=== PATIENT | female | born 1945 | race Caucasian/White ===

== ENCOUNTER 2016-03-28 16:24 | Emergency (ER) | payer OTHER ==
[~2016-03-28] VITALS: Ht 162.6 cm; Wt 65.8 kg
[2016-03-28 17:54] LABS: BASOPHILS # (AUTO) 0.1 /CMM (0.0-0.2); BASOPHILS % (AUTO) 1.4 % (0.0-2.0); DIFF TOTAL % 100 %; HEMATOCRIT 47 % (33-45); LYMPHOCYTES # (AUTO) 1.4 /CMM (0.8-4.8); LYMPHOCYTES % (AUTO) 36.4 % (20.0-44.0); MEAN CORPUSCULAR HEMOGLOBIN 31 PG (26.0-33.0); MEAN CORPUSCULAR HGB CONC 34 g/dl (31.0-36.0); MEAN CORPUSCULAR VOLUME 91 fL (82-100); MONOCYTES # (AUTO) 0.2 /CMM (0.1-1.30); MONOCYTES % (AUTO) 5.6 % (2.0-12.0); NEUTROPHILS # (AUTO) 2.1 /CMM (1.8-8.9); NEUTROPHILS % (AUTO) 55.6 % (43.0-81.0); PLATELET COUNT (AUTO) 217 /CMM (150-450); RED BLOOD CELL COUNT(AUTO) 5.22 MIL/uL (4.0-5.2); WHITE BLOOD COUNT (AUTO) 3.8 K/uL (4.3-11.0)
[2016-03-28] MEDS ORDERED: IV SET PRIMARY 1 EA INFUS.SET MC ONE (17:56)
[2016-03-28] MEDS ORDERED: IV NS 0.9% 500 ML IV ONE (17:56)
[2016-03-28 17:59] LABS: ANION GAP 19 (5-14); CARBON DIOXIDE 26 mmol/L (21-32); CHLORIDE 106 mmol/L (98-107); CREATININE 0.6 mg/dL (0.6-1.3); GFR 99 mL/min (>60); GLUCOSE 94 mg/dL (74-106); SODIUM SERUM 147 mmol/L (136-145); UREA NITROGEN, BLOOD 7 mg/dL (7-18)
[2016-03-28] MEDS ORDERED: IV NS 0.9% 500 ML BAG IV ONE (18:00)
[2016-03-28 18:07] LABS: ALANINE AMINOTRANSFERASE 38 U/L (12-78); ALBUMIN 4.3 g/dL (3.4-5.0); ASPARTATE AMINOTRANSFERASE 33 U/L (15-37); BILIRUBIN,DIRECT 0.1 mg/dL (0.0-0.2); BILIRUBIN,TOTAL 0.3 mg/dL (0.2-1.0); INDIRECT BILIRUBIN 0.2 mg/dL (0.0-1.1); TOTAL PROTEIN, SERUM 7.9 g/dL (6.4-8.2); TROPONIN I < 0.017 ng/mL (0.00-0.056)
[2016-03-28 18:11] LABS: CALCIUM, SERUM 8.5 mg/dL (8.5-10.1)
[2016-03-28 18:13] LABS: SALICYLATE 0.8 mg/dL (2.8-20.0)
[2016-03-28 18:14] LABS: ACETAMINOPHEN 0 ug/ml (10-30)
[2016-03-28 18:42] LABS: KETONES,URINE NEGATIVE (NEGATIVE); LEUKOCYTE ESTERASE ,URINE NEGATIVE (NEGATIVE)
[2016-03-28 19:01] LABS: CANNABINOID, URINE NEGATIVE (NEGATIVE); PHENCYCLIDINE SCREEN,URINE NEGATIVE (NEGATIVE)
[2016-03-28 19:13] LABS: ADD UA MICROSCOPIC YES
[2016-03-28 19:16] LABS: ADD URINE CULTURE NO
[2016-03-28 19:17] LABS: HYALINE CASTS, URINE Few /LPF (None Seen)
[2016-03-28] MEDS ORDERED: IOHEXOL-350 100 ML VIAL IV ONE (20:45)
[2016-03-28] MEDS ORDERED: CT SWABBABLE VALVE TRANS SET 1 EA INFUS.SET MC ONE (20:46)
[2016-03-28] MEDS ORDERED: IV NS 0.9% 250 ML IV ONE (20:46)
[2016-03-28] MEDS ORDERED: THIAMINE HCL 100 MG TABLET PO ONE (22:00)
[2016-03-28] MEDS ORDERED: LORAZEPAM 0.5 MG TABLET PO ONE (22:00)
[2016-03-28] MEDS ORDERED: LORAZEPAM 1 MG TABLET ONE (22:01)
[2016-03-28] MEDS ORDERED: THIAMINE HCL 100 MG TABLET ONE (22:01)
[2016-03-28] MEDS ORDERED: HEPARIN INFUSION/D5W 500 ML IV PRN (22:30)
[2016-03-28 22:51] LABS: INR 0.99 (0.87-1.13); PROTHROMBIN TIME 10.7 SECS (9.5-12.7)
[2016-03-28] MEDS ORDERED: IV SET PRIMARY PUMP SET 1 EA INFUS.SET MC ONE (23:03)
[2016-03-28] MEDS ORDERED: HEPARIN INFUSION/D5W 500 ML IV ONE (23:03)
[2016-03-28] MEDS ORDERED: HEPARIN SODIUM, PORCINE 5000 UNITS/1 ML VIAL ONE (23:04)
[2016-03-28] MEDS ORDERED: HEPARIN SODIUM, PORCINE 5000 UNITS/1 ML VIAL IV ONE (23:30)
[2016-03-28 23:47] VITALS: BP 144/82
== END 2016-03-29 00:26 ==
LOC: ER 16:25
DX: F10.129 Alcohol abuse with intoxication, unspecified (principal); R40.4 Transient alteration of awareness; I26.99 Other pulmonary embolism without acute cor pulmonale; C50.919 Malignant neoplasm of unspecified site of unspecified female breast; J45.909 Unspecified asthma, uncomplicated; R79.1 Abnormal coagulation profile
CPT/HCPCS: 36415; 70450; 71010; 71275; 74160; 80048; 80076; 80305; 81001; 83690; 84484; 85025; 85730; 93005; 96365; 96375; 99285; A4606; G0480; G0481; G0482; J1644 ×2; J7040; J7050; Q9967; 81000-TC; G6038-TC; G6039-TC; G6040-TC; Z7610

== ENCOUNTER 2016-03-31 18:32 | Emergency (ER) | payer OTHER ==
[~2016-03-31] VITALS: Ht 157.5 cm; Wt 67.6 kg
[2016-03-31] MEDS ORDERED: IV NS 0.9% 1,000 ML BAG IV ONE (19:00)
[2016-03-31 20:52] LABS: BASOPHILS % (AUTO) 0.9 % (0.0-2.0); DIFF TOTAL % 100 %; EOSINOPHILS # (AUTO) 0.1 /CMM (0.0-0.7); EOSINOPHILS % (AUTO) 2.6 % (0.0-6.0); HEMATOCRIT 44 % (33-45); HEMOGLOBIN 14.5 g/dL (11.5-14.8); LYMPHOCYTES # (AUTO) 1.5 /CMM (0.8-4.8); LYMPHOCYTES % (AUTO) 29.6 % (20.0-44.0); MEAN CORPUSCULAR HEMOGLOBIN 30 PG (26.0-33.0); MEAN CORPUSCULAR HGB CONC 33 g/dl (31.0-36.0); MEAN CORPUSCULAR VOLUME 91 fL (82-100); MONOCYTES # (AUTO) 0.4 /CMM (0.1-1.30); MONOCYTES % (AUTO) 8.6 % (2.0-12.0); NEUTROPHILS # (AUTO) 2.9 /CMM (1.8-8.9); NEUTROPHILS % (AUTO) 58.3 % (43.0-81.0); PLATELET COUNT (AUTO) 182 /CMM (150-450); RED BLOOD CELL COUNT(AUTO) 4.84 MIL/uL (4.0-5.2); WHITE BLOOD COUNT (AUTO) 4.9 K/uL (4.3-11.0)
[2016-03-31 21:08] LABS: CALCIUM, SERUM 8.7 mg/dL (8.5-10.1); CREATININE 0.7 mg/dL (0.6-1.3)
[2016-03-31 21:14] LABS: ALBUMIN 3.9 g/dL (3.4-5.0); TOTAL PROTEIN, SERUM 7.4 g/dL (6.4-8.2)
[2016-03-31 21:25] LABS: SALICYLATE 0.9 mg/dL (2.8-20.0)
[2016-03-31] MEDS ORDERED: OLANZAPINE 10 MG VIAL IM ONE ×2 (21:30→22:01)
[2016-03-31 21:34] LABS: BILIRUBIN,TOTAL 0.1 mg/dL (0.2-1.0)
[2016-03-31 21:38] LABS: INDIRECT BILIRUBIN 0.1 mg/dL (0.0-1.1)
[2016-03-31 21:42] LABS: INR 1.27 (0.87-1.13); PROTHROMBIN TIME 13.7 SECS (9.5-12.7)
[2016-03-31] MEDS ORDERED: WARFARIN SODIUM 1 MG TABLET PO ONE (22:00)
[2016-03-31] MEDS ORDERED: IV NS 0.9% 1,000 ML ONE (22:01)
[2016-03-31] MEDS ORDERED: IV SET PRIMARY 1 EA INFUS.SET MC ONE (22:01)
[2016-03-31 22:10] LABS: CANNABINOID, URINE NEGATIVE (NEGATIVE); PHENCYCLIDINE SCREEN,URINE NEGATIVE (NEGATIVE)
[2016-03-31] MEDS ORDERED: WARFARIN SODIUM 1 MG TABLET ONE (22:36)
[2016-03-31] MEDS ORDERED: ENOXAPARIN SODIUM 80 MG/0.8 ML DISP.SYRIN SQ ONE ×2 (22:36→22:54)
[2016-03-31] MEDS ORDERED: ENOXAPARIN SODIUM 60 MG/0.6 ML DISP.SYRIN SQ ONE (23:00)
[2016-04-01 03:23] VITALS: BP 140/72
== END 2016-04-01 03:27 | disposition home or self-care (01) ==
LOC: ER 18:33
DX: I26.99 Other pulmonary embolism without acute cor pulmonale (principal); F10.129 Alcohol abuse with intoxication, unspecified; J45.909 Unspecified asthma, uncomplicated; R79.1 Abnormal coagulation profile; Z85.3 Personal history of malignant neoplasm of breast
CPT/HCPCS: 36415; 80048; 80076; 80305; 85025; 85730; 96360; 96372 ×2; 99284; A4606; G0480; G0481; G0482; J1650; J3490; J7030; G6038-TC; G6039-TC; G6040-TC

== ENCOUNTER 2016-09-02 22:13 | Emergency (ER) | payer OTHER ==
[~2016-09-02] VITALS: Ht 165.1 cm; Wt 74.8 kg
--- NOTE | 2016-09-02 22:15 | NUR ---
TO BED 10 A 70 YO FEMALE BB FOR ETOH. PT STATES "I DRANK TOO MUCH." PATIENT IS ALERT AND RESPONSIVE, WALKING WITH STEADY GAIT. VSS. NONDIAPHORETIC. INITIATED SAFETY AND COMFORT MEASURES. AWAITING FOR ER MD CAGE.
[2016-09-02] MEDS ORDERED: ONDANSETRON 4 MG TAB.RAPDIS ONE (22:48)
[2016-09-02] MEDS ORDERED: ONDANSETRON 4 MG TAB.RAPDIS SL ONE (23:00)
--- NOTE | 2016-09-02 23:56 | NUR ---
Patient discharged to home in stable condition. Written and verbal after care instructions given. Patient verbalizes understanding of instruction. Patient is ambulatory with a steady gait, accompanied by home. Instructed not to drive. No further complaints.
[2016-09-02 23:57] VITALS: BP 127/83
== END 2016-09-02 23:58 | disposition home or self-care (01) ==
LOC: ER 22:17
DX: F10.129 Alcohol abuse with intoxication, unspecified (principal); J45.909 Unspecified asthma, uncomplicated; C50.919 Malignant neoplasm of unspecified site of unspecified female breast
CPT/HCPCS: 82962; 99283; A4606; Q0162; Z7610

== ENCOUNTER → 2016-09-24 | Emergency (ER) | payer OTHER ==
[~2016-09-24] VITALS: Ht 167.6 cm; Wt 87.1 kg
[~2016-09-24] MED LIST: IV NS 0.9% 1,000 ML BAG IV ONE; IV NS 0.9% 1,000 ML ONE; IV SET PRIMARY 1 EA INFUS.SET MC ONE; LORAZEPAM INJ 2 MG/ML VIAL IV ONE; LORAZEPAM INJ 2 MG/ML VIAL ONE
--- NOTE | 2016-09-24 17:12 | NUR ---
PT MAL HOME TO ER BED 11. CALLED 911 STATING HE CAN NO LONGER TAKE CARE OF PT FOR HEAVY ALCOHOL DRINKING. PT SEEN IN ER MULTIPLE TIMES FOR SAME REASON. PLACED ON MONITOR. STABLE VITALS. AWAITING MD CAGE.
--- NOTE | 2016-09-24 17:31 | NUR ---
DR GREY AT BEDSIDE FOR EVAL.
--- NOTE | 2016-09-24 17:45 | NUR ---
IV LINE STARTED BLOOD DRAWN AND SENT TO LAB.
[2016-09-24 17:56] LABS: BASOPHILS # (AUTO) 0.1 /CMM (0.0-0.2); BASOPHILS % (AUTO) 1.9 % (0.0-2.0); EOSINOPHILS # (AUTO) 0.1 /CMM (0.0-0.7); EOSINOPHILS % (AUTO) 2.5 % (0.0-6.0); HEMATOCRIT 38 % (33-45); LYMPHOCYTES # (AUTO) 1.1 /CMM (0.8-4.8); LYMPHOCYTES % (AUTO) 31.7 % (20.0-44.0); MEAN CORPUSCULAR HEMOGLOBIN 33 PG (26.0-33.0); MEAN CORPUSCULAR HGB CONC 34 g/dl (31.0-36.0); MEAN CORPUSCULAR VOLUME 96 fL (82-100); MONOCYTES # (AUTO) 0.4 /CMM (0.1-1.30); MONOCYTES % (AUTO) 11.9 % (2.0-12.0); NEUTROPHILS # (AUTO) 1.9 /CMM (1.8-8.9); PLATELET COUNT (AUTO) 241 /CMM (150-450); RDW COEFFICIENT OF VARIATION 16.6 (11.5-15.0); RED BLOOD CELL COUNT(AUTO) 3.97 MIL/uL (4.0-5.2); WHITE BLOOD COUNT (AUTO) 3.6 K/uL (4.3-11.0)
[2016-09-24 18:10] VITALS: BP 113/81
[2016-09-24 18:32] LABS: CALCIUM, SERUM 8.1 mg/dL (8.5-10.1); CREATININE 0.7 mg/dL (0.6-1.3); POTASSIUM 3.8 mmol/L (3.5-5.1)
[2016-09-24 18:38] LABS: ALBUMIN 3.4 g/dL (3.4-5.0); BILIRUBIN,DIRECT 0.1 mg/dL (0.0-0.2); BILIRUBIN,TOTAL 0.2 mg/dL (0.2-1.0); TOTAL PROTEIN, SERUM 6.7 g/dL (6.4-8.2)
--- NOTE | 2016-09-24 18:44 | NUR ---
Note teddy in EDM - 09/24/16 at 1852 by LISA PT IS AGITATED. YELLING, DEMANDING BE CALLED. DR QUE WHELAN. ATIVAN 1MG. ORDER CARRIED OUT. GIVEN IVP.
--- NOTE | 2016-09-24 19:02 | NUR ---
PT STILL AGITATED. DR GREY MADE AWARE. MEDECATED ORDERED.
--- NOTE | 2016-09-24 21:00 | NUR ---
FRIEND AT BEDSIDE TO TAKE PT HOME. D/C TO HOME IN STABLE CONDITION. IVHL DISCONTINUED.
== END | disposition home or self-care (01) ==
LOC: ER 17:11
DX: F10.129 Alcohol abuse with intoxication, unspecified (principal); E86.0 Dehydration; J45.909 Unspecified asthma, uncomplicated; Z85.3 Personal history of malignant neoplasm of breast
CPT/HCPCS: 36415; 80048-TC; 80076-TC; 83735-TC; 85025-TC; A4606; A6402; A6403; J2060; J7030; Z7610

== ENCOUNTER 2018-08-27 16:57 | Emergency (ER) | payer OTHER ==
[~2018-08-27] VITALS: Ht 165.1 cm; Wt 83.9 kg
[2018-08-27] MEDS ORDERED: FAMOTIDINE/PF INJ 20 MG/2 ML VIAL IV ONE ×2 (17:30→18:07)
[2018-08-27] MEDS ORDERED: ONDANSETRON HCL/PF 4 MG/2 ML VIAL IVP ONE (17:30)
[2018-08-27] MEDS ORDERED: IV NS 0.9% 1,000 ML BAG IV ONE (17:30)
--- NOTE | 2018-08-27 17:30 | NUR ---
PATIENT BIB FAMILY C/O ALCOHOL INTOXICATION +VOMITING. PATIENT A&O X 3, NO ACUTE DISTRESS. AWAITING MD
[2018-08-27 18:05] LABS: BASOPHILS # (AUTO) 0.1 /CMM (0.0-0.2); BASOPHILS % (AUTO) 1.3 % (0.0-2.0); EOSINOPHILS % (AUTO) 0.3 % (0.0-6.0); HEMATOCRIT 42 % (33-45); HEMOGLOBIN 14.1 g/dL (11.5-14.8); LYMPHOCYTES # (AUTO) 2.4 /CMM (0.8-4.8); LYMPHOCYTES % (AUTO) 24.4 % (20.0-44.0); MEAN CORPUSCULAR HGB CONC 34 g/dl (31.0-36.0); MEAN CORPUSCULAR VOLUME 94 fL (82-100); MONOCYTES # (AUTO) 0.7 /CMM (0.1-1.30); MONOCYTES % (AUTO) 7.4 % (2.0-12.0); NEUTROPHILS # (AUTO) 6.5 /CMM (1.8-8.9); NEUTROPHILS % (AUTO) 66.6 % (43.0-81.0); PLATELET COUNT (AUTO) 234 /CMM (150-450); RED BLOOD CELL COUNT(AUTO) 4.43 MIL/uL (4.0-5.2); WHITE BLOOD COUNT (AUTO) 9.7 K/uL (4.3-11.0)
[2018-08-27] MEDS ORDERED: ONDANSETRON HCL/PF 4 MG/2 ML VIAL ONE (18:07)
[2018-08-27 18:15] LABS: CALCIUM, SERUM 8.4 mg/dL (8.5-10.1); CARBON DIOXIDE 23 mmol/L (21-32); CHLORIDE 101 mmol/L (98-107); CREATININE 0.6 mg/dL (0.6-1.3); GLUCOSE 122 mg/dL (74-106); POTASSIUM 3.9 mmol/L (3.5-5.1); SODIUM SERUM 139 mmol/L (136-145); UREA NITROGEN, BLOOD 10 mg/dL (7-18)
[2018-08-27 18:21] LABS: ALANINE AMINOTRANSFERASE 29 U/L (12-78); ALBUMIN 3.1 g/dL (3.4-5.0); ALKALINE PHOSPHATASE 129 U/L (46-116); ASPARTATE AMINOTRANSFERASE 25 U/L (15-37); BILIRUBIN,DIRECT 0.1 mg/dL (0.0-0.2); BILIRUBIN,TOTAL 0.3 mg/dL (0.2-1.0); TOTAL PROTEIN, SERUM 6.8 g/dL (6.4-8.2)
[2018-08-27 18:40] LABS: ALCOHOL, BLOOD 309 mg/dL (0-0); LIPASE 148 U/L (73-393)
--- NOTE | 2018-08-27 18:58 | NUR ---
PATIENT RESTING ON BED. NO ACUTE DISTRESS. DENIES ANY PAIN OR DISCOMFORT. WILL CONTINUE TO MONITOR
--- NOTE | 2018-08-27 19:14 | NUR ---
IV removed. Catheter intact and site benign. Pressure and 4x4 applied to site. No bleeding noted.Patient discharged to home in stable condition. Written and verbal after care instructions given. Patient verbalizes understanding of instruction.
[2018-08-27 19:15] VITALS: BP 126/77
== END 2018-08-27 19:15 | disposition home or self-care (01) ==
LOC: ER 16:58
DX: K29.20 Alcoholic gastritis without bleeding (principal); F10.129 Alcohol abuse with intoxication, unspecified; F32.9 Major depressive disorder, single episode, unspecified; J45.909 Unspecified asthma, uncomplicated; Z85.3 Personal history of malignant neoplasm of breast; Y90.8 Blood alcohol level of 240 mg/100 ml or more
CPT/HCPCS: 36415; 71045; 80048; 80076; 80307; 83690; 84484; 85025; 93005; 96361; 96374; 96375; 99284; J2405; J3490; J7030; G0480

== ENCOUNTER 2018-08-29 01:57 | Emergency (ER) | payer OTHER ==
[~2018-08-29] VITALS: Ht 172.7 cm; Wt 84.8 kg
[2018-08-29] MEDS ORDERED: MAG HYDROX/AL HYDROX/SIMETH 30 ML UDC ONE ×2 (02:20→03:27)
[2018-08-29] MEDS ORDERED: ONDANSETRON HCL/PF 4 MG/2 ML VIAL ONE (02:20)
[2018-08-29] MEDS ORDERED: ONDANSETRON HCL/PF 4 MG/2 ML VIAL IM ONE (02:30)
[2018-08-29] MEDS ORDERED: MAG HYDROX/AL HYDROX/SIMETH 30 ML UDC PO ONE ×2 (02:30→03:30)
[2018-08-29 03:37] VITALS: BP 122/71
== END 2018-08-29 03:38 | disposition home or self-care (01) ==
LOC: ER 02:00
DX: F10.229 Alcohol dependence with intoxication, unspecified (principal); F32.9 Major depressive disorder, single episode, unspecified; J45.909 Unspecified asthma, uncomplicated; Y90.9 Presence of alcohol in blood, level not specified; Z85.3 Personal history of malignant neoplasm of breast
CPT/HCPCS: 82962; 96372; 99283; J2405

== ENCOUNTER 2018-09-26 13:21 | Emergency (ER) | payer OTHER ==
[~2018-09-26] VITALS: Ht 165.1 cm; Wt 83.5 kg
--- NOTE | 2018-09-26 13:40 | NUR ---
[id number] FRM HOME C/O NAUSEA AND VOMITING, TOOK AMBIEN 10MG, 3 PILL +ETOH SMELL. PT AAOX3, VSS. DENIES CP, SOB, DIZZINESS AT THIS TIME. PT SEEN & EVAL'D BY DR. WALKER & WILL CONT TO MONITOR.
[2018-09-26 13:54] LABS: BASOPHILS # (AUTO) 0.1 /CMM (0.0-0.2); BASOPHILS % (AUTO) 1.4 % (0.0-2.0); EOSINOPHILS % (AUTO) 3.2 % (0.0-6.0); HEMATOCRIT 40 % (33-45); HEMOGLOBIN 13.3 g/dL (11.5-14.8); LYMPHOCYTES # (AUTO) 0.7 /CMM (0.8-4.8); LYMPHOCYTES % (AUTO) 17.4 % (20.0-44.0); MEAN CORPUSCULAR HGB CONC 33 g/dl (31.0-36.0); MEAN CORPUSCULAR VOLUME 100 fL (82-100); MONOCYTES # (AUTO) 0.3 /CMM (0.1-1.30); MONOCYTES % (AUTO) 8.2 % (2.0-12.0); NEUTROPHILS % (AUTO) 69.8 % (43.0-81.0); PLATELET COUNT (AUTO) 147 /CMM (150-450); RED BLOOD CELL COUNT(AUTO) 3.99 MIL/uL (4.0-5.2); WHITE BLOOD COUNT (AUTO) 4.2 K/uL (4.3-11.0)
[2018-09-26] MEDS ORDERED: ONDANSETRON HCL/PF 4 MG/2 ML VIAL ONE (13:55)
[2018-09-26] MEDS ORDERED: ONDANSETRON HCL/PF 4 MG/2 ML VIAL IVP ONE (14:00)
[2018-09-26 14:01] LABS: CALCIUM, SERUM 8.3 mg/dL (8.5-10.1); CARBON DIOXIDE 27 mmol/L (21-32); CHLORIDE 102 mmol/L (98-107); CREATININE 0.7 mg/dL (0.6-1.3); GLUCOSE 102 mg/dL (74-106); POTASSIUM 3.6 mmol/L (3.5-5.1); SODIUM SERUM 140 mmol/L (136-145); UREA NITROGEN, BLOOD 2 mg/dL (7-18)
[2018-09-26 14:06] LABS: ALANINE AMINOTRANSFERASE 47 U/L (12-78); ALBUMIN 3.2 g/dL (3.4-5.0); ALCOHOL, BLOOD 56 mg/dL (0-0); ALKALINE PHOSPHATASE 141 U/L (46-116); ASPARTATE AMINOTRANSFERASE 48 U/L (15-37); BILIRUBIN,DIRECT 0.1 mg/dL (0.0-0.2); BILIRUBIN,TOTAL 0.5 mg/dL (0.2-1.0); TOTAL PROTEIN, SERUM 6.8 g/dL (6.4-8.2)
[2018-09-26 14:08] LABS: ACETAMINOPHEN 0 ug/ml (10-30); SALICYLATE 0.6 mg/dL (2.8-20.0)
--- NOTE | 2018-09-26 14:15 | NUR ---
MEDICATED PER ERMD ORDER, PT AQUILINO WELL.
[2018-09-26] MEDS ORDERED: CHLORDIAZEPOXIDE HCL 25 MG CAPSULE PO ONE (14:30)
[2018-09-26] MEDS ORDERED: IV NS 0.9% 1,000 ML BAG IV ONE (14:30)
[2018-09-26] MEDS ORDERED: CHLORDIAZEPOXIDE HCL 25 MG CAPSULE ONE (15:02)
--- NOTE | 2018-09-26 15:45 | NUR ---
Patient discharged to home in stable condition. Written and verbal after care instructions given TO . verbalizes understanding of instruction. IV removed. Catheter intact and site benign. Pressure and 4x4 applied to site. No bleeding noted.
[2018-09-26 16:16] VITALS: BP 132/78
== END 2018-09-26 16:17 | disposition home or self-care (01) ==
LOC: ER 13:23
DX: F10.20 Alcohol dependence, uncomplicated (principal); T42.6X1A Poisoning by other antiepileptic and sedative-hypnotic drugs, accidental (unintentional), initial encounter; R11.10 Vomiting, unspecified; F32.9 Major depressive disorder, single episode, unspecified; R94.31 Abnormal electrocardiogram [ECG] [EKG]; J45.909 Unspecified asthma, uncomplicated; Z85.3 Personal history of malignant neoplasm of breast; Y90.3 Blood alcohol level of 60-79 mg/100 ml; Y92.89 Other specified places as the place of occurrence of the external cause
CPT/HCPCS: 36415; 80048; 80076; 80307 ×2; 80329; 85025; 93005; 96361; 96374; 99284; G0480; J2405; J7030

== ENCOUNTER 2020-12-20 19:14 | Emergency (ER) | payer OTHER ==
[~2020-12-20] VITALS: Ht 167.6 cm; Wt 68.0 kg
--- NOTE | 2020-12-20 19:30 | NUR ---
pt bibra c/o alcohol intoxication. Per ems, pt's called because he "cant handle pt when pt is drunk". Pt keeps screaming "i want to go home" and refuses to answer questions. pt placed on 2L O2 saturating 96%. MD at bedside for eval. Pt attached to monitor and pox. Pt given blanket and call light within reach
[2020-12-20 19:48] LABS: BASOPHILS # (AUTO) 0.1 K/uL (0.0-0.2); BASOPHILS % (AUTO) 1.1 % (0.0-2.0); HEMATOCRIT 45 % (33-45); HEMOGLOBIN 14.9 g/dL (11.5-14.8); LYMPHOCYTES # (AUTO) 2.5 K/uL (0.8-4.8); LYMPHOCYTES % (AUTO) 20.1 % (20.0-44.0); MEAN CORPUSCULAR HGB CONC 33 g/dl (31.0-36.0); MEAN CORPUSCULAR VOLUME 96 fL (82-100); MONOCYTES # (AUTO) 0.8 K/uL (0.1-1.30); MONOCYTES % (AUTO) 6.7 % (2.0-12.0); NEUTROPHILS # (AUTO) 8.7 K/uL (1.8-8.9); NEUTROPHILS % (AUTO) 71.1 % (43.0-81.0); PLATELET COUNT (AUTO) 249 K/uL (150-450); RED BLOOD CELL COUNT(AUTO) 4.71 MIL/uL (4.0-5.2); WHITE BLOOD COUNT (AUTO) 12.2 K/uL (4.3-11.0)
--- NOTE | 2020-12-20 19:51 | NUR ---
blood sent to lab
[2020-12-20 19:55] LABS: CALCIUM, SERUM 8.2 mg/dL (8.5-10.1); CARBON DIOXIDE 25 mmol/L (21-32); CHLORIDE 104 mmol/L (98-107); CREATININE 0.7 mg/dL (0.6-1.3); GLUCOSE 107 mg/dL (74-106); POTASSIUM 3.5 mmol/L (3.5-5.1); SODIUM SERUM 144 mmol/L (136-145); UREA NITROGEN, BLOOD 9 mg/dL (7-18)
[2020-12-20 20:06] LABS: ALANINE AMINOTRANSFERASE 38 U/L (12-78); ALBUMIN 3.6 g/dL (3.4-5.0); ALCOHOL, BLOOD 348 mg/dL (0-0); ALKALINE PHOSPHATASE 134 U/L (46-116); ASPARTATE AMINOTRANSFERASE 35 U/L (15-37); BILIRUBIN,DIRECT 0.1 mg/dL (0.0-0.2); BILIRUBIN,TOTAL 0.2 mg/dL (0.2-1.0); TOTAL PROTEIN, SERUM 7.3 g/dL (6.4-8.2)
--- NOTE | 2020-12-20 20:06 | NUR ---
KULDEEP RIDDLE: [phone]
[2020-12-20 20:10] LABS: ACETAMINOPHEN < 0 ug/ml (10-30)
--- NOTE | 2020-12-20 20:10 | NUR ---
CALLED [facility] [phone]
--- NOTE | 2020-12-20 20:12 | NUR ---
ANTONINA GREER MD, ON THE PHONE W/ DR ZAYAS
--- NOTE | 2020-12-20 20:15 | NUR ---
Priya espinal in [facility] - 12/20/20 at 2124 by GERARDO gave report to ems
--- NOTE | 2020-12-20 20:18 | NUR ---
urine and covid swab sent to lab
[2020-12-20 20:26] LABS: BILIRUBIN,URINE Negative (NEGATIVE); COLOR,URINE LIGHT YELLOW (YELLOW); LEUKOCYTE ESTERASE ,URINE Moderate (NEGATIVE); NITRITE, URINE Negative (NEGATIVE); PH,URINE 5.5 (5.0-8.0); PROTEIN,URINE Trace mg/dl (NEGATIVE); UGLUCOSE Negative (NEGATIVE); UROBILINOGEN,URINE 0.2 EU/dL (0.2)
[2020-12-20] MEDS ORDERED: IV NS 0.9% 1,000 ML BAG IV ONE (20:30)
--- NOTE | 2020-12-20 20:35 | NUR ---
SULTANA MORROW AT [facility] PT GOT ACCEPTED AT [facility], GOING TO [facility] # FOR REPORT: [phone] Addendum: 12/20/20 at 2035 by MICHAEL ROBSON AMOR
[2020-12-20 20:39] LABS: BACTERIA,URINE Many /HPF (None Seen); FINE GRANULAR CASTS,URINE Few /LPF (None Seen); SQUAMOUS EPITHELIAL CELL,UR Few /HPF (None Seen)
--- NOTE | 2020-12-20 21:13 | NUR ---
gave report to micky Dang for yari
--- NOTE | 2020-12-20 21:15 | NUR ---
gave report to ems
--- NOTE | 2020-12-20 21:36 | NUR ---
pt refused transport to [facility]. pt's will come to pick her up
--- NOTE | 2020-12-20 21:44 | NUR ---
PLACED MULTIPLE PHONE CALLS TO KULDEEP THE , W/ NO ANSWER
--- NOTE | 2020-12-20 22:05 | NUR ---
Patient does not wish to proceed with medical care recommended by Dr. Downing. Patient given information related to possible complications, up to and including , which could occur as a result of leaving the hospital at this time. Patient verbalizes understanding of risks involved due to leaving against medical advice. Patient, has signed AMA form.
[2020-12-20 22:09] VITALS: BP 140/85
== END 2020-12-20 22:05 | disposition left against medical advice (07) ==
LOC: ER 19:27
DX: F10.229 Alcohol dependence with intoxication, unspecified (principal); Y90.8 Blood alcohol level of 240 mg/100 ml or more; R62.7 Adult failure to thrive; Z20.822 Contact with and (suspected) exposure to COVID-19; Z68.24 Body mass index [BMI] 24.0-24.9, adult; Z53.29 Procedure and treatment not carried out because of patient's decision for other reasons; Z85.3 Personal history of malignant neoplasm of breast; J45.909 Unspecified asthma, uncomplicated
CPT/HCPCS: 36415; 80048; 80076; 80143; 80307; 80320; 81001; 85025; 87077; 87086; 87186; 87426; 96360; 99285; C9803; J7030; G0480

== ENCOUNTER 2020-12-30 09:44 | Emergency (ER) | payer OTHER ==
[~2020-12-30] VITALS: Ht 167.6 cm; Wt 81.2 kg
--- NOTE | 2020-12-30 09:55 | NUR ---
[id number] HOME, BOYFRIEND CALLED UNABLE TO TAKE CARE OF SELF. ADMITS ETOH. THE PATIENT IS ALERT AND ORIENTED X2. IN ROOM AIR AND DENIES SOB. RESPIRATION REGULAR AND UNLABORED. ATTACHED TO THE MONITOR. WARM BLANKET PROVIDED FOR COMFORT. WILL CONTINUE TO MONITOR THE PATIENT.
[2020-12-30] MEDS ORDERED: IV NS 0.9% 1,000 ML BAG IV ONE (10:00)
[2020-12-30 10:14] LABS: BASOPHILS # (AUTO) 0.1 K/uL (0.0-0.2)
[2020-12-30 10:20] LABS: EOSINOPHILS % (AUTO) 0.1 % (0.0-6.0); HEMATOCRIT 42 % (33-45); LYMPHOCYTES # (AUTO) 1.4 K/uL (0.8-4.8); LYMPHOCYTES % (AUTO) 15.6 % (20.0-44.0); MEAN CORPUSCULAR HGB CONC 33 g/dl (31.0-36.0); MEAN CORPUSCULAR VOLUME 97 fL (82-100); MONOCYTES # (AUTO) 0.5 K/uL (0.1-1.30); MONOCYTES % (AUTO) 5.3 % (2.0-12.0); NEUTROPHILS # (AUTO) 6.8 K/uL (1.8-8.9); PLATELET COUNT (AUTO) 221 K/uL (150-450); RED BLOOD CELL COUNT(AUTO) 4.33 MIL/uL (4.0-5.2); WHITE BLOOD COUNT (AUTO) 8.8 K/uL (4.3-11.0)
--- NOTE | 2020-12-30 10:25 | NUR ---
BLOOD SPECIMEN COLLECTED AND SENT TO THE LAB
--- NOTE | 2020-12-30 10:27 | NUR ---
URINE COLLECTED AND SENT TO THE LAB
[2020-12-30 10:52] LABS: CARBON DIOXIDE 24 mmol/L (21-32); CHLORIDE 100 mmol/L (98-107); CREATININE 0.8 mg/dL (0.6-1.3); GLUCOSE 106 mg/dL (74-106); POTASSIUM 4.1 mmol/L (3.5-5.1); SODIUM SERUM 137 mmol/L (136-145); UREA NITROGEN, BLOOD 12 mg/dL (7-18)
[2020-12-30 11:00] LABS: ALANINE AMINOTRANSFERASE 35 U/L (12-78); ALBUMIN 3.1 g/dL (3.4-5.0); ALCOHOL, BLOOD 365 mg/dL (0-0); ALKALINE PHOSPHATASE 125 U/L (46-116); ASPARTATE AMINOTRANSFERASE 38 U/L (15-37); BILIRUBIN,DIRECT 0.1 mg/dL (0.0-0.2); BILIRUBIN,TOTAL 0.3 mg/dL (0.2-1.0); TOTAL PROTEIN, SERUM 6.8 g/dL (6.4-8.2)
[2020-12-30 11:01] LABS: ACETAMINOPHEN 0 ug/ml (10-30)
[2020-12-30 11:02] LABS: BILIRUBIN,URINE Negative (NEGATIVE); COLOR,URINE YELLOW (YELLOW); LEUKOCYTE ESTERASE ,URINE Small (NEGATIVE); NITRITE, URINE Positive (NEGATIVE); PH,URINE 5.5 (5.0-8.0); PROTEIN,URINE 30 mg/dl (NEGATIVE); UGLUCOSE Negative (NEGATIVE); UROBILINOGEN,URINE 0.2 EU/dL (0.2)
[2020-12-30] MEDS ORDERED: LORAZEPAM INJ 2 MG/ML VIAL ONE (11:03)
--- NOTE | 2020-12-30 11:07 | NUR ---
ATIVAN 1 MG IV ONCE PER DNP MACO. THE ORDER IS READ BACK, VERIFIED. NOTED AND CARRIED OUT.
--- NOTE | 2020-12-30 11:08 | NUR ---
COVID SWAB DONE AND SENT TO THE LAB
[2020-12-30] MEDS ORDERED: LORAZEPAM INJ 2 MG/ML VIAL IV ONE (11:30)
[2020-12-30] MEDS ORDERED: IV NS 0.9% 1,000 ML IV ONE (12:00)
[2020-12-30 12:54] LABS: BACTERIA,URINE Many /HPF (None Seen)
[2020-12-30 12:55] LABS: SQUAMOUS EPITHELIAL CELL,UR Few /HPF (None Seen); WBC,URINE 21-50 /HPF (0-3)
--- NOTE | 2020-12-30 15:00 | NUR ---
Patient discharged to [facility] in stable condition. Written and verbal after care instructions given. Patient verbalizes understanding of instruction.
[2020-12-30 15:40] VITALS: BP 121/70
== END 2020-12-30 15:41 | disposition home or self-care (01) ==
LOC: ER 09:47
DX: F10.229 Alcohol dependence with intoxication, unspecified (principal); Y90.8 Blood alcohol level of 240 mg/100 ml or more; Z85.3 Personal history of malignant neoplasm of breast; J45.909 Unspecified asthma, uncomplicated; F32.A Depression, unspecified; Z20.822 Contact with and (suspected) exposure to COVID-19
CPT/HCPCS: 36415; 80048; 80076; 80143; 80179; 80320; 81001; 84484; 85025; 87077; 87086; 87186; 87426; 96361; 96374; 99285; C9803; J2060; J7030 ×2; G0480

== ENCOUNTER 2022-06-02 21:26 | Emergency (ER) | payer OTHER ==
[~2022-06-02] VITALS: Ht 167.6 cm; Wt 79.4 kg
[2022-06-02 22:18] LABS: BASOPHILS % (AUTO) 0.4 % (0.0-2.0); EOSINOPHILS % (AUTO) 4.5 % (0.0-6.0); HEMATOCRIT 43 % (33-45); HEMOGLOBIN 13.8 g/dL (11.5-14.8); LYMPHOCYTES # (AUTO) 1.3 K/uL (0.8-4.8); LYMPHOCYTES % (AUTO) 13.8 % (20.0-44.0); MEAN CORPUSCULAR HGB CONC 32 g/dl (31.0-36.0); MEAN CORPUSCULAR VOLUME 96 fL (82-100); MONOCYTES # (AUTO) 0.8 K/uL (0.1-1.30); MONOCYTES % (AUTO) 8.1 % (2.0-12.0); NEUTROPHILS # (AUTO) 7.1 K/uL (1.8-8.9); NEUTROPHILS % (AUTO) 73.2 % (43.0-81.0); PLATELET COUNT (AUTO) 172 K/uL (150-450); RED BLOOD CELL COUNT(AUTO) 4.44 MIL/uL (4.0-5.2); WHITE BLOOD COUNT (AUTO) 9.7 K/uL (4.3-11.0)
--- NOTE | 2022-06-02 22:27 | NUR ---
URINE SENT TO LAB
--- NOTE | 2022-06-02 22:40 | NUR ---
Priya espinal in ED - 06/02/22 at 2258 by MOHINDER Patient discharged to home in stable condition with family. Written and verbal after care instructions given. Patient verbalizes understanding of instruction.
[2022-06-02 22:42] LABS: CALCIUM, SERUM 8.7 mg/dL (8.5-10.1); CREATININE 0.7 mg/dL (0.6-1.3); POTASSIUM 4.2 mmol/L (3.5-5.1)
[2022-06-02 22:52] LABS: ALBUMIN 3.6 g/dL (3.4-5.0); BILIRUBIN,DIRECT 0.2 mg/dL (0.0-0.2); BILIRUBIN,TOTAL 0.4 mg/dL (0.2-1.0); TOTAL PROTEIN, SERUM 7.4 g/dL (6.4-8.2)
[2022-06-02] MEDS ORDERED: LORAZEPAM INJ 2 MG/ML VIAL ONE (22:57)
[2022-06-02] MEDS ORDERED: OLANZAPINE 10 MG VIAL IM ONE ×2 (22:57→23:00)
[2022-06-02] MEDS ORDERED: LORAZEPAM INJ 2 MG/ML VIAL IV ONE (23:00)
[2022-06-03 01:03] LABS: BILIRUBIN,URINE NEGATIVE (NEGATIVE); COLOR,URINE DARK YELLOW (YELLOW); LEUKOCYTE ESTERASE ,URINE 3+ (NEGATIVE); NITRITE, URINE POSITIVE (NEGATIVE); PROTEIN,URINE 2+ mg/dl (NEGATIVE); UGLUCOSE NEGATIVE (NEGATIVE); UROBILINOGEN,URINE 0.2 EU/dL (0.2)
[2022-06-03 01:05] LABS: BACTERIA,URINE Many /HPF (None Seen); SQUAMOUS EPITHELIAL CELL,UR Few /HPF (None Seen); WBC,URINE TOO NUMEROUS TO COUN /HPF (0-3)
[2022-06-03] MEDS ORDERED: NITR100C PO (02:06)
[2022-06-03] MEDS ORDERED: CEFTRIAXONE 1GM BAG (ER ONLY) 1 GM/50 ML PIGGYBACK IV ONE (02:30)
[2022-06-03] MEDS ORDERED: CEFTRIAXONE 1GM BAG (ER ONLY) 50 ML IV ONE (02:42)
--- NOTE | 2022-06-03 05:01 | NUR ---
CALLED FOR PICKUP. ON HIS WAY.
[2022-06-03] MEDS ORDERED: LORAZEPAM 1 MG TABLET ONE (05:50)
[2022-06-03] MEDS ORDERED: LORAZEPAM 1 MG TABLET PO ONE (06:00)
--- NOTE | 2022-06-03 06:42 | NUR ---
Patient discharged to home in stable condition and picked up by . Written and verbal after care instructions given. Patient verbalizes understanding of instruction. IV removed. Catheter intact and site benign. Pressure and 4x4 applied to site. No bleeding noted.
[2022-06-03 06:52] VITALS: BP 158/71
== END 2022-06-03 06:57 | disposition home or self-care (01) ==
LOC: ER 21:30
DX: F10.129 Alcohol abuse with intoxication, unspecified (principal); N39.0 Urinary tract infection, site not specified; F32.A Depression, unspecified; Z98.890 Other specified postprocedural states; Y90.8 Blood alcohol level of 240 mg/100 ml or more
CPT/HCPCS: 99284; 96372 ×2; 85025; 80048; 80076; 36415; 80143; 80320; 80307; 96365; 87086; 81001; J2060; J3490; J0696; G0480

== ENCOUNTER 2023-10-02 18:37 | Emergency (ER) | payer OTHER ==
[~2023-10-02] VITALS: Ht 170.2 cm; Wt 59.9 kg
[~2023-10-02 18:37] MED LIST changes: -IV NS 0.9% 1,000 ML BAG IV ONE; -IV NS 0.9% 1,000 ML ONE; -IV SET PRIMARY 1 EA INFUS.SET MC ONE; -LORAZEPAM INJ 2 MG/ML VIAL IV ONE; -LORAZEPAM INJ 2 MG/ML VIAL ONE; +NITR100C PO
[2023-10-02] MEDS: OCTREOTIDE 1,250 MCG in IV NS 0.9% 250 ML IV ONE (19:00)
[2023-10-02] MEDS: OCTREOTIDE 50 MCG/ML AMPUL IV ONE (19:00)
[2023-10-02] MEDS: PANTOPRAZOLE 80 MG in IV NS 0.9% 500 ML IV ONE (19:00)
[2023-10-02 19:38] LABS: BASOPHILS # (AUTO) 0.3 K/uL (0.0-0.2); BASOPHILS % (AUTO) 4.8 % (0.0-2.0); EOSINOPHILS # (AUTO) 0.1 K/uL (0.0-0.7); EOSINOPHILS % (AUTO) 0.9 % (0.0-6.0); HEMATOCRIT 48 % (33-45); LYMPHOCYTES # (AUTO) 1.1 K/uL (0.8-4.8); LYMPHOCYTES % (AUTO) 17.7 % (20.0-44.0); MEAN CORPUSCULAR HEMOGLOBIN 34 PG (26.0-33.0); MEAN CORPUSCULAR HGB CONC 33 g/dl (31.0-36.0); MEAN CORPUSCULAR VOLUME 102 fL (82-100); MONOCYTES # (AUTO) 0.5 K/uL (0.1-1.30); MONOCYTES % (AUTO) 8.4 % (2.0-12.0); NEUTROPHILS # (AUTO) 4.3 K/uL (1.8-8.9); NEUTROPHILS % (AUTO) 68.2 % (43.0-81.0); PLATELET COUNT (AUTO) 263 K/uL (150-450); RED BLOOD CELL COUNT(AUTO) 4.72 MIL/uL (4.0-5.2); RED CELL DISTRIBUTION WIDTH 14.6 % (11.5-15.0); WHITE BLOOD COUNT (AUTO) 6.3 K/uL (4.3-11.0)
[2023-10-02] MEDS: IV NS 0.9% 1,000 ML BAG IV ONE (19:41)
[2023-10-02] MEDS ORDERED: PANTOPRAZOLE 40 MG VIAL ONE (19:42)
[2023-10-02] MEDS ORDERED: CEFTRIAXONE 1GM BAG (ER ONLY) 50 ML IV ONE (19:42)
[2023-10-02] MEDS ORDERED: OCTREOTIDE 100 MCG/ML VIAL ONE ×2 (19:43→19:55)
[2023-10-02] MEDS ORDERED: OLANZAPINE 10 MG VIAL IM ONE (19:44)
[2023-10-02] MEDS ORDERED: OCTREOTIDE 500 MCG/ML VIAL ONE (19:50)
[2023-10-02 19:51] LABS: CARBON DIOXIDE 29 mmol/L (21-32); CHLORIDE 101 mmol/L (98-107); CREATININE 0.7 mg/dL (0.6-1.3); GLUCOSE 104 mg/dL (74-106); POTASSIUM 3.2 mmol/L (3.5-5.1); SODIUM SERUM 142 mmol/L (136-145); UREA NITROGEN, BLOOD 6 mg/dL (7-18)
[2023-10-02] MEDS: OLANZAPINE 10 MG VIAL IM ONE (19:53)
[2023-10-02] MEDS: PANTOPRAZOLE 80 MG in IV NS 0.9% 100 ML IV ONE (19:54)
[2023-10-02] MEDS: CEFTRIAXONE 1GM BAG (ER ONLY) 1 GM/50 ML PIGGYBACK IV ONE (19:54)
[2023-10-02 19:57] LABS: ALANINE AMINOTRANSFERASE 41 U/L (12-78); ALBUMIN 3.6 g/dL (3.4-5.0); ALKALINE PHOSPHATASE 97 U/L (46-116); ASPARTATE AMINOTRANSFERASE 57 U/L (15-37); BILIRUBIN,DIRECT 0.1 mg/dL (0.0-0.2); BILIRUBIN,TOTAL 0.3 mg/dL (0.2-1.0); LIPASE 69 U/L (16-77); TOTAL PROTEIN, SERUM 7.6 g/dL (6.4-8.2)
[2023-10-02 20:20] LABS: INR 0.93 (0.91-1.10); PARTIAL THROMBOPLASTIN TIME 24.7 SEC (24.3-34.3); PROTHROMBIN TIME 9.6 SECS (9.2-11.1)
[2023-10-02 23:11] VITALS: BP 118/65; TEMP 98.2; O2SAT 98
== END 2023-10-03 01:26 | disposition short-term general hospital (02) ==
LOC: ER 18:47
DX: K92.2 Gastrointestinal hemorrhage, unspecified (principal); F10.229 Alcohol dependence with intoxication, unspecified; R45.1 Restlessness and agitation; J45.909 Unspecified asthma, uncomplicated; F32.A Depression, unspecified; Z85.3 Personal history of malignant neoplasm of breast; Y90.8 Blood alcohol level of 240 mg/100 ml or more
CPT/HCPCS: 99285; 96372; 96365; 96366; 96368; 96376; 85025; 80048; 83690; 80076; 36415; 85730; 86850; 80320; J2354 ×5; J7030 ×2; J7050 ×2; J7040; J2470 ×2; J3490; A4223; J0696; G0480

== ENCOUNTER 2024-04-18 16:39 | Emergency (ER) | payer OTHER ==
[~2024-04-18] VITALS: Ht 167.6 cm; Wt 68.9 kg
[2024-04-18 17:22] LABS: BASOPHILS # (AUTO) 0.1 K/uL (0.0-0.2); BASOPHILS % (AUTO) 0.8 % (0.0-2.0); EOSINOPHILS # (AUTO) 0.1 K/uL (0.0-0.7); EOSINOPHILS % (AUTO) 0.6 % (0.0-6.0); HEMATOCRIT 41 % (33-45); HEMOGLOBIN 13.7 g/dL (11.5-14.8); LYMPHOCYTES # (AUTO) 2.2 K/uL (0.8-4.8); LYMPHOCYTES % (AUTO) 18.3 % (20.0-44.0); MEAN CORPUSCULAR HEMOGLOBIN 34 PG (26.0-33.0); MEAN CORPUSCULAR HGB CONC 33 g/dl (31.0-36.0); MEAN CORPUSCULAR VOLUME 102 fL (82-100); MONOCYTES # (AUTO) 0.8 K/uL (0.1-1.30); MONOCYTES % (AUTO) 6.5 % (2.0-12.0); NEUTROPHILS # (AUTO) 8.9 K/uL (1.8-8.9); NEUTROPHILS % (AUTO) 73.8 % (43.0-81.0); PLATELET COUNT (AUTO) 353 K/uL (150-450); RED BLOOD CELL COUNT(AUTO) 4.03 MIL/uL (4.0-5.2)
[2024-04-18] MEDS ORDERED: LIDOCAINE 0.5%-EPI 1:200,000 50 ML VIAL ONE (17:32)
[2024-04-18] MEDS ORDERED: LIDOCAINE 1%-EPI 1:100,000 20 ML VIAL ONE (17:33)
[2024-04-18 17:37] LABS: INR 0.98 (0.91-1.10); PARTIAL THROMBOPLASTIN TIME 25.9 SEC (24.3-34.3); PROTHROMBIN TIME 10.4 SECS (9.2-11.1)
[2024-04-18 18:00] VITALS: TEMP 98
[2024-04-18] MEDS: IV NS 0.9% 1,000 ML BAG IV ONE (18:00)
[2024-04-18 18:09] LABS: SERUM AMMONIA 13 umol/L (11-32)
[2024-04-18 18:10] LABS: CALCIUM, SERUM 8.9 mg/dL (8.5-10.1); CARBON DIOXIDE 28 mmol/L (21-32); CHLORIDE 99 mmol/L (98-107); CREATININE 0.8 mg/dL (0.6-1.3); GLUCOSE 112 mg/dL (74-106); POTASSIUM 3.1 mmol/L (3.5-5.1); SODIUM SERUM 138 mmol/L (136-145); UREA NITROGEN, BLOOD 3 mg/dL (7-18)
[2024-04-18 18:18] LABS: APPEARANCE,URINE SLIGHTLY CLOUDY (CLEAR); BILIRUBIN,URINE NEGATIVE (NEGATIVE); BLOOD, URINE TRACE-INTA Ery/uL (NEGATIVE); COLOR,URINE YELLOW (YELLOW); KETONES,URINE NEGATIVE (NEGATIVE); LEUKOCYTE ESTERASE ,URINE 3+ (NEGATIVE); NITRITE, URINE NEGATIVE (NEGATIVE); PROTEIN,URINE NEGATIVE (NEGATIVE); UGLUCOSE NEGATIVE (NEGATIVE); UROBILINOGEN,URINE 0.2 EU/dL (0.2)
[2024-04-18] MEDS: LIDOCAINE 1%-EPI 1:100,000 20 ML VIAL TP ONE (18:20)
[2024-04-18 18:24] LABS: ALANINE AMINOTRANSFERASE 20 U/L (12-78); ALBUMIN 3.2 g/dL (3.4-5.0); ALCOHOL, BLOOD 151 mg/dL (0-10); ALKALINE PHOSPHATASE 123 U/L (46-116); ASPARTATE AMINOTRANSFERASE 36 U/L (15-37); BILIRUBIN,DIRECT 0.3 mg/dL (0.0-0.2); BILIRUBIN,TOTAL 0.6 mg/dL (0.2-1.0); TOTAL PROTEIN, SERUM 6.8 g/dL (6.4-8.2)
[2024-04-18 18:25] LABS: ACETAMINOPHEN <10 ug/ml (10-30)
[2024-04-18 18:26] LABS: ADD URINE CULTURE YES; BACTERIA,URINE 3+ /HPF (None Seen); WBC,URINE 51-80 /HPF (0-3)
[2024-04-18 18:46] LABS: AMPHETAMINE, URINE NEGATIVE (NEGATIVE); BARBITURATE, URINE NEGATIVE (NEGATIVE); CANNABINOID, URINE NEGATIVE (NEGATIVE); COCCAINE, URINE NEGATIVE (NEGATIVE); OPIATE, URINE NEGATIVE (NEGATIVE); PHENCYCLIDINE SCREEN,URINE NEGATIVE (NEGATIVE)
[2024-04-18 18:47] LABS: BENZODIAZEPINE, URINE POSITIVE (NEGATIVE)
[2024-04-18] MEDS: POTASSIUM CHLORIDE 20 MEQ TAB.PRT.SR PO ONE (19:00)
[2024-04-18] MEDS: CEPHALEXIN MONOHYDRATE 500 MG CAPSULE PO ONE (19:00)
[2024-04-18 19:02] LABS: ANISOCYTOSIS 1+; EOSINOPHILS % (MANUAL) 1 % (0-4); LYMPHOCYTES % (MANUAL) 16 % (16-48); MONOCYTES % (MANUAL) 6 % (0-11.0); NEUTROPHILS % (MANUAL) 77 (42-76); PLATELET ESTIMATE ADEQUATE
[2024-04-18 20:04] VITALS: BP 111/78; O2SAT 94
[2024-04-18] MEDS ORDERED: CEPHALEXIN MONOHYDRATE 500 MG CAPSULE PO ONE (20:46)
[2024-04-18] MEDS ORDERED: POTASSIUM CHLORIDE 20 MEQ TAB.PRT.SR PO ONE (20:46)
== END 2024-04-18 21:18 | disposition short-term general hospital (02) ==
LOC: ER 16:46
DX: S01.81XA Laceration without foreign body of other part of head, initial encounter (principal); E87.6 Hypokalemia; F10.129 Alcohol abuse with intoxication, unspecified; J45.909 Unspecified asthma, uncomplicated; N39.0 Urinary tract infection, site not specified; Z85.3 Personal history of malignant neoplasm of breast; W10.9XXA Fall (on) (from) unspecified stairs and steps, initial encounter; Y93.89 Activity, other specified; Y92.89 Other specified places as the place of occurrence of the external cause; Y99.8 Other external cause status
CPT/HCPCS: 12015; 36415; 70450; 70486; 72125; 80048; 80076; 80143; 80307; 80320; 81001; 82140; 82962; 84443; 85007; 85025; 85730; 93005; 96360; 99285; A6403; J3490; G0480

== ENCOUNTER 2024-06-26 20:55 | Emergency (ER) | payer OTHER ==
[~2024-06-26] VITALS: Ht 162.6 cm; Wt 74.8 kg
[2024-06-26 21:10] VITALS: TEMP 98.1
[2024-06-27 01:00] VITALS: BP 124/70; O2SAT 97
== END 2024-06-27 01:01 | disposition home or self-care (01) ==
LOC: ER 20:59
DX: S01.81XA Laceration without foreign body of other part of head, initial encounter (principal); F10.129 Alcohol abuse with intoxication, unspecified; J45.909 Unspecified asthma, uncomplicated; F32.A Depression, unspecified; Z85.3 Personal history of malignant neoplasm of breast; W22.8XXA Striking against or struck by other objects, initial encounter; Y93.89 Activity, other specified; Y92.89 Other specified places as the place of occurrence of the external cause; Y99.8 Other external cause status; Y90.9 Presence of alcohol in blood, level not specified
CPT/HCPCS: 99285; 72125; 12001; 70450; 70486; A6403